=== PATIENT | female | born 1990 | race Caucasian/White ===

== ENCOUNTER 2022-08-02 20:26 | Emergency (ER) | payer MEDICAID ==
[2022-08-02 20:54] VITALS: BP 152/92; PULSE 98
[2022-08-02] MEDS ORDERED: Lidocaine 5% 700 MG Patch TOP ONE (21:17)
[2022-08-02] MEDS ORDERED: Acetaminophen/HYDROcodone 325-5 MG Tab PO ONE (21:17)
[2022-08-02] MEDS ORDERED: Haloperidol Lactate 5 MG/ML SDV IM ONE (21:46)
== END 2022-08-02 22:27 | disposition home or self-care (01) ==
LOC: JP.ED 20:26
DX: S22.32XA Fracture of one rib, left side, initial encounter for closed fracture (principal); F17.210 Nicotine dependence, cigarettes, uncomplicated; W18.30XA Fall on same level, unspecified, initial encounter
CPT/HCPCS: 71101; 99283; A9270